=== PATIENT | male | born 1980 | race Caucasian/White ===

== ENCOUNTER 2020-12-24 17:08 | Emergency (ER) | payer MEDICARE ==
[~2020-12-24] VITALS: Ht 167.6 cm; Wt 95.3 kg
[2020-12-24 17:41] LABS: HEMATOCRIT 47.5 % (42.0-52.0); HEMOGLOBIN 16.6 gm/dL (14.0-18.0); MCH 31.7 pg (26.0-34.0); MCHC 34.9 g/dL (28.0-37.0); MCV 90.7 fL (80.0-100.0); MPV 7.6 fl. (7.2-11.1); RBC 5.24 mil/uL (4.50-6.00); RDW-CV 12.6 % (10.5-14.5); WBC 9.8 thou/uL (4.0-11.0)
[2020-12-24 17:52] LABS: CALCIUM 8.7 mg/dL (8.5-10.1); CREATININE 1.3 mg/dL (0.6-1.3); POTASSIUM 3.8 mmol/L (3.5-5.1)
[2020-12-24] MEDS ORDERED: FLEXERIL PO (18:38)
[2020-12-24 19:13] VITALS: BP 119/70
--- NOTE | 2020-12-25 11:40 | EKG ---
[place] [address] ELECTROCARDIOGRAM REPORT Name: SHIRA ODOM V Room: [facility]#: [id number] Admission: 12/24/20 Attend Phys: Discharge: 12/24/20 Date of : 82 Date of Service: 12/24/201840 Report #: [id number] THIS REPORT FOR: //name// [facility] ED Test Date: 2020-12-24 Test Time: 18:41:13 Pat Name: SHIRA ODOM Department: Room: Gender: Advertising Agent: : 1980 Requested By: Alejandro Stephenson Order Number: [id number] MD: Reymundo Mata Measurements Intervals [place] Rate: 82 P: 52 MA: 169 QRS: 26 QRSD: 101 T: 51 QT: 363 QTc: 424 Interpretive Statements Sinus rhythm No previous ECG available for comparison Electronically Signed On 12-25-2020 11:40:04 [employer]UMENT [employer] by Reymundo Mata [email or web address] <ELECTRONICALLY SIGNED> By: Reymundo Mata MD, [facility] 12/25/20 1140 40 184 Reymundo Mata MD, FACC /EPI
== END 2020-12-24 19:10 | disposition home or self-care (01) ==
LOC: M.ERS 17:08
PROVIDERS: Emergency Medicine Emergency Medical Services
DX: R55 Syncope and collapse (principal); R53.1 Weakness; M54.2 Cervicalgia; R51.9 Headache, unspecified; M25.511 Pain in right shoulder; M79.641 Pain in right hand

== ENCOUNTER 2021-01-02 13:48 | Emergency (ER) | payer MEDICARE ==
[~2021-01-02] VITALS: Ht 167.6 cm; Wt 95.3 kg
[~2021-01-02 13:48] MED LIST: FLEXERIL PO
[2021-01-02 13:50] VITALS: BP 135/99
[2021-01-02] MEDS ORDERED: AMOXICILLIN 50500 MG PO (13:52)
== END 2021-01-02 15:40 | disposition left against medical advice (07) ==
LOC: M.ERS 13:48
DX: R53.83 Other fatigue (principal); Z53.21 Procedure and treatment not carried out due to patient leaving prior to being seen by health care provider